=== PATIENT | male | born 1940 | race Caucasian/White ===

== ENCOUNTER 2018-03-10 10:39 | Emergency (ER) | payer OTHER ==
[~2018-03-10] VITALS: Ht 162.6 cm; Wt 64.8 kg
[2018-03-10 10:40] VITALS: BP 184/65
== END 2018-03-10 12:50 | disposition home or self-care (01) ==
LOC: ED 12:46
DX: S82.65XA Nondisplaced fracture of lateral malleolus of left fibula, initial encounter for closed fracture (principal); I25.10 Atherosclerotic heart disease of native coronary artery without angina pectoris; Z88.0 Allergy status to penicillin; W06.XXXA Fall from bed, initial encounter; Y93.89 Activity, other specified; Y92.89 Other specified places as the place of occurrence of the external cause; Y99.8 Other external cause status
CPT/HCPCS: 99284

== ENCOUNTER 2018-10-27 08:54 | Observation (INO) | payer OTHER ==
[~2018-10-27] VITALS: Ht 162.6 cm; Wt 64.1 kg
[2018-10-27 09:50] LABS: BASOPHILS # (AUTO) 0.01 x10^3/uL (0-0.1); BASOPHILS % (AUTO) 0 % (0-1); EOSINOPHILS # (AUTO) 0.04 x10^3/uL (0-0.4); EOSINOPHILS % (AUTO) 1 % (1-7); LYMPHOCYTES # (AUTO) 0.98 x10^3/uL (1-3.4); LYMPHOCYTES % (AUTO) 14 % (22-44); MD NO; MEAN CORPUSCULAR HEMOGLOBIN 33.3 pg (27.5-34.5); MEAN CORPUSCULAR HGB CONC 33.8 g/dL (33.2-36.2); MEAN CORPUSCULAR VOLUME 98.7 fL (81-97); MEAN PLATELET VOLUME 8.5 fL (7.4-10.4); MONOCYTES # (AUTO) 0.47 x10^3/uL (0.2-0.8); MONOCYTES % (AUTO) 7 % (2-9); NEUTROPHILS # (AUTO) 5.76 x10^3/uL (1.8-6.8); NEUTROPHILS % (AUTO) 79 % (42-75); PLATELET COUNT 258 x10^3/uL (130-400); RED BLOOD COUNT 3.42 x10^6/uL (4.38-5.82); RED CELL DISTRIBUTION WIDTH 14.4 % (9.4-14.8)
[2018-10-27] MEDS ORDERED: AMLO10TA6 PO (09:56)
[2018-10-27] MEDS ORDERED: LOVA40TA2 PO (09:57)
[2018-10-27 09:58] LABS: ALBUMIN 3.2 g/dL (3.4-5.0); ANION GAP 10 mmol/L (5-15); CALCIUM 8.5 mg/dL (8.5-10.1); CHLORIDE 113 mmol/L (98-107); CREATININE 3.16 mg/dL (0.7-1.3)
[2018-10-27] MEDS ORDERED: ISOS60TA36 PO (09:59)
[2018-10-27] MEDS ORDERED: METO-95 PO (09:59)
[2018-10-27 10:00] LABS: RAPID INFLUENZA A Negative (Negative); RAPID INFLUENZA B Negative (Negative)
[2018-10-27] MEDS ORDERED: SODIUM CHLORIDE FLUSH 10ML SYR IVF ONE (10:00)
[2018-10-27] MEDS ORDERED: AZITHROMYCIN 500 MG in SODIUM CHLORIDE 0.9% 250 ML IVPB ONE (10:00)
[2018-10-27] MEDS ORDERED: CEFTRIAXONE PMX 1GM/50ML 50 ML IVPB ONE (10:00)
[2018-10-27 10:02] LABS: TROPONIN I 0.109 ng/mL (0.000-0.045)
[2018-10-27] MEDS ORDERED: DOXA1TAB2 PO (10:02)
[2018-10-27] MEDS ORDERED: BENA40TA3 PO (10:02)
[2018-10-27] MEDS ORDERED: ASPI-496 PO (10:02)
[2018-10-27] MEDS ORDERED: METF500T17 PO (10:02)
[2018-10-27] MEDS ORDERED: CEFTRIAXONE PMX 1GM/50ML 50 ML ONE (10:17)
[2018-10-27] MEDS ORDERED: LABETALOL 5MG/ML, 20ML IVPush PRN (13:30)
[2018-10-27] MEDS ORDERED: ONDANSETRON 2MG/ML, 2ML IVPush PRN (13:30)
[2018-10-27] MEDS ORDERED: ONDANSETRON ODT 4 MG PO PRN (13:30)
[2018-10-27] MEDS ORDERED: POLYETHYLENE GLYCOL 17 GM PACKET PO PRN (13:30)
[2018-10-27] MEDS ORDERED: SODIUM CHLORIDE FLUSH 10ML SYR IVF PRN (14:00)
[2018-10-27 14:01] LABS: TROPONIN I 0.103 ng/mL (0.000-0.045)
[2018-10-27 14:03] LABS: FREE T4 (FREE THYROXINE) 1.33 ng/dL (0.76-1.46)
[2018-10-27 14:30] VITALS: BP 187/92
[2018-10-27] MEDS ORDERED: AMLODIPINE 10 MG TAB ONE (14:53)
[2018-10-27] MEDS ORDERED: METOPROLOL TARTRATE 100 MG TABLET ONE (14:54)
[2018-10-27] MEDS: AMLODIPINE 10 MG TAB PO SCH (14:56)
[2018-10-27] MEDS ORDERED: PHARMACY MAY ADJ FOR RENAL FX MC PRN (15:00)
[2018-10-27] MEDS ORDERED: FUROSEMIDE 40 MG/4 ML IV ONE ×2 (15:00)
[2018-10-27] MEDS ORDERED: METOPROLOL SUCCINATE 100 MG TAB.ER.24H ONE (15:01)
[2018-10-27] MEDS: METOPROLOL SUCCINATE 100 MG TAB.ER.24H PO SCH (15:03)
[2018-10-27 16:12] VITALS: BP 186/75
[2018-10-27] MEDS: GUAIFENESIN 200 MG TABLET PO SCH ×2 (16:37→20:41)
[2018-10-27 16:38] VITALS: BP 178/78
[2018-10-27 16:44] LABS: CREATININE,URINE RANDOM 28.1 mg/dL
[2018-10-27] MEDS ORDERED: GLUCAGON 1 MG IM PRN (17:00)
[2018-10-27] MEDS ORDERED: hydrALAzine 20 MG/ML, 1ML IV PRN (17:00)
[2018-10-27] MEDS ORDERED: DEXTROSE 4 GM TAB.CHEW PO PRN (17:00)
[2018-10-27] MEDS ORDERED: DEXTROSE 50%, 50ML SYRINGE IVPush PRN (17:00)
[2018-10-27] MEDS: DOXAZOSIN 1MG TABLET PO SCH (17:05)
[2018-10-27] MEDS: ISOSORBIDE MONONITRATE ER 60 MG TABLET PO SCH (17:05)
[2018-10-27] MEDS: BENAZEPRIL 20 MG TABLET PO SCH (17:05)
[2018-10-27 17:23] LABS: CHOL/HDL RATIO 3.6; LDL/HDL RATIO 2.3 (0.5-3.0)
[2018-10-27 17:36] LABS: HEMOGLOBIN A1C 5.6 % (4.2-6.3)
[2018-10-27] MEDS ORDERED: ALBUTEROL SULFATE 2.5 MG/3 ML NPPB PRN (18:00)
[2018-10-27 18:07] VITALS: BP 159/71
[2018-10-27 19:35] LABS: TROPONIN I 0.083 ng/mL (0.000-0.045)
[2018-10-27] MEDS: HEPARIN 5,000 UNITS/ML, 1ML SQ SCH (19:35)
[2018-10-27] MEDS: DOXYCYCLINE 100MG TABLET PO SCH (20:41)
[2018-10-27] MEDS: LOVASTATIN 40 MG TABLET PO SCH (20:41)
[2018-10-27] MEDS: SODIUM CHLORIDE FLUSH 10ML SYR IVF SCH (20:42)
[2018-10-28 02:11] VITALS: BP 154/69
[2018-10-28 04:59] LABS: BASOPHILS # (AUTO) 0.04 x10^3/uL (0-0.1); BASOPHILS % (AUTO) 1 % (0-1); EOSINOPHILS % (AUTO) 1 % (1-7); LYMPHOCYTES # (AUTO) 1.67 x10^3/uL (1-3.4); LYMPHOCYTES % (AUTO) 23 % (22-44); MD NO; MEAN CORPUSCULAR HEMOGLOBIN 33.5 pg (27.5-34.5); MEAN CORPUSCULAR HGB CONC 33.5 g/dL (33.2-36.2); MEAN CORPUSCULAR VOLUME 99.9 fL (81-97); MEAN PLATELET VOLUME 8.9 fL (7.4-10.4); MONOCYTES # (AUTO) 0.62 x10^3/uL (0.2-0.8); MONOCYTES % (AUTO) 9 % (2-9); NEUTROPHILS # (AUTO) 4.85 x10^3/uL (1.8-6.8); NEUTROPHILS % (AUTO) 67 % (42-75); PLATELET COUNT 241 x10^3/uL (130-400); RED BLOOD COUNT 3.12 x10^6/uL (4.38-5.82); RED CELL DISTRIBUTION WIDTH 14.4 % (9.4-14.8)
[2018-10-28 05:06] LABS: ALANINE AMINOTRANSFERASE 46 U/L (12-78); ALBUMIN 2.7 g/dL (3.4-5.0); ANION GAP 9 mmol/L (5-15); CALCIUM 8.7 mg/dL (8.5-10.1); CHLORIDE 113 mmol/L (98-107); CREATININE 3.22 mg/dL (0.7-1.3)
[2018-10-28 05:17] LABS: ALKALINE PHOSPHATASE 85 U/L (45-117); BILIRUBIN,TOTAL 0.9 mg/dL (0.2-1.0); THYROID STIMULATING HORMONE 0.765 mIU/L (0.358-3.740)
[2018-10-28] MEDS: HEPARIN 5,000 UNITS/ML, 1ML SQ SCH ×3 (05:30→20:23)
[2018-10-28] MEDS: GUAIFENESIN 200 MG TABLET PO SCH ×4 (05:30→20:23)
[2018-10-28 07:55] VITALS: BP 170/72
[2018-10-28] MEDS: SENNA/DOCUSATE TABLET PO SCH (09:00)
[2018-10-28] MEDS ORDERED: METOPROLOL SUCCINATE 100 MG TAB.ER.24H PO SCH (09:00)
[2018-10-28] MEDS: SODIUM CHLORIDE FLUSH 10ML SYR IVF SCH ×2 (09:00→20:23)
[2018-10-28] MEDS ORDERED: AMLODIPINE 10 MG TAB PO SCH (09:00)
[2018-10-28] MEDS: ISOSORBIDE MONONITRATE ER 60 MG TABLET PO SCH (09:10)
[2018-10-28] MEDS: AMLODIPINE 10 MG TAB PO SCH (09:11)
[2018-10-28] MEDS: ASPIRIN 81 MG TABLET CHEW PO SCH (09:11)
[2018-10-28] MEDS: DOXAZOSIN 1MG TABLET PO SCH (09:11)
[2018-10-28] MEDS: DOXYCYCLINE 100MG TABLET PO SCH ×2 (09:11→20:23)
[2018-10-28] MEDS: METOPROLOL SUCCINATE 100 MG TAB.ER.24H PO SCH (09:11)
[2018-10-28] MEDS: BENAZEPRIL 20 MG TABLET PO SCH (09:12)
[2018-10-28] MEDS: CEFTRIAXONE PMX 1GM/50ML 50 ML IV SCH (11:50)
[2018-10-28 12:50] VITALS: BP 159/70
[2018-10-28] MEDS: FUROSEMIDE 20 MG TABLET PO SCH (18:00)
[2018-10-28] MEDS: LOVASTATIN 40 MG TABLET PO SCH (20:23)
[2018-10-28 21:59] VITALS: BP 144/68
[2018-10-29 01:51] VITALS: BP 139/57
[2018-10-29 05:10] LABS: ALBUMIN 2.7 g/dL (3.4-5.0); ANION GAP 9 mmol/L (5-15); CALCIUM 8.2 mg/dL (8.5-10.1); CHLORIDE 109 mmol/L (98-107)
[2018-10-29 05:30] LABS: MEAN CORPUSCULAR HEMOGLOBIN 33.5 pg (27.5-34.5); MEAN CORPUSCULAR HGB CONC 33.4 g/dL (33.2-36.2); MEAN CORPUSCULAR VOLUME 100.2 fL (81-97); MEAN PLATELET VOLUME 9.3 fL (7.4-10.4); PLATELET COUNT 243 x10^3/uL (130-400); RED BLOOD COUNT 3.04 x10^6/uL (4.38-5.82); RED CELL DISTRIBUTION WIDTH 14.2 % (9.4-14.8)
[2018-10-29] MEDS: GUAIFENESIN 200 MG TABLET PO SCH ×4 (05:34→20:43)
[2018-10-29] MEDS: HEPARIN 5,000 UNITS/ML, 1ML SQ SCH ×3 (05:34→20:42)
[2018-10-29 06:25] LABS: BASOPHILS # (AUTO) 0.05 x10^3/uL (0-0.1); BASOPHILS % (AUTO) 1 % (0-1); EOSINOPHILS # (AUTO) 0.34 x10^3/uL (0-0.4); EOSINOPHILS % (AUTO) 5 % (1-7); LYMPHOCYTES # (AUTO) 2.35 x10^3/uL (1-3.4); LYMPHOCYTES % (AUTO) 33 % (22-44); MD SCAN; MONOCYTES # (AUTO) 0.74 x10^3/uL (0.2-0.8); MONOCYTES % (AUTO) 10 % (2-9); NEUTROPHILS # (AUTO) 3.71 x10^3/uL (1.8-6.8); NEUTROPHILS % (AUTO) 52 % (42-75)
[2018-10-29 07:26] VITALS: BP 142/63
[2018-10-29] MEDS: BENAZEPRIL 20 MG TABLET PO SCH (09:00)
[2018-10-29] MEDS: SODIUM CHLORIDE FLUSH 10ML SYR IVF SCH ×2 (09:00→20:44)
[2018-10-29] MEDS: FUROSEMIDE 20 MG TABLET PO SCH ×2 (10:11→17:12)
[2018-10-29] MEDS: SENNA/DOCUSATE TABLET PO SCH (10:11)
[2018-10-29] MEDS: METOPROLOL SUCCINATE 100 MG TAB.ER.24H PO SCH (10:11)
[2018-10-29] MEDS: AMLODIPINE 10 MG TAB PO SCH (10:11)
[2018-10-29] MEDS: ASPIRIN 81 MG TABLET CHEW PO SCH (10:11)
[2018-10-29] MEDS: DOXAZOSIN 1MG TABLET PO SCH (10:12)
[2018-10-29] MEDS: DOXYCYCLINE 100MG TABLET PO SCH ×2 (10:12→20:43)
[2018-10-29] MEDS: ISOSORBIDE MONONITRATE ER 60 MG TABLET PO SCH (10:16)
[2018-10-29] MEDS: CEFTRIAXONE PMX 1GM/50ML 50 ML IV SCH (11:29)
[2018-10-29 14:13] LABS: MICROSCOPIC AUTO
[2018-10-29 14:14] LABS: CULTURE INDICATED? NO
[2018-10-29 14:18] VITALS: BP 138/61
[2018-10-29 14:22] LABS: CREATININE,URINE RANDOM 77.2 mg/dL
[2018-10-29 18:47] VITALS: BP 146/67
[2018-10-29] MEDS: LOVASTATIN 40 MG TABLET PO SCH (20:43)
[2018-10-30 01:27] VITALS: BP 140/60
[2018-10-30] MEDS: HEPARIN 5,000 UNITS/ML, 1ML SQ SCH ×2 (05:51→12:15)
[2018-10-30] MEDS: GUAIFENESIN 200 MG TABLET PO SCH ×2 (05:52→11:03)
[2018-10-30 06:41] VITALS: BP 165/70
[2018-10-30 07:58] LABS: BASOPHILS # (AUTO) 0.04 x10^3/uL (0-0.1); BASOPHILS % (AUTO) 1 % (0-1); EOSINOPHILS # (AUTO) 0.25 x10^3/uL (0-0.4); EOSINOPHILS % (AUTO) 4 % (1-7); LYMPHOCYTES # (AUTO) 2.08 x10^3/uL (1-3.4); LYMPHOCYTES % (AUTO) 30 % (22-44); MD NO; MEAN CORPUSCULAR HGB CONC 33.8 g/dL (33.2-36.2); MEAN CORPUSCULAR VOLUME 97.6 fL (81-97); MEAN PLATELET VOLUME 8.8 fL (7.4-10.4); MONOCYTES # (AUTO) 0.73 x10^3/uL (0.2-0.8); MONOCYTES % (AUTO) 10 % (2-9); NEUTROPHILS # (AUTO) 3.91 x10^3/uL (1.8-6.8); NEUTROPHILS % (AUTO) 56 % (42-75); PLATELET COUNT 255 x10^3/uL (130-400); RED BLOOD COUNT 3.27 x10^6/uL (4.38-5.82); RED CELL DISTRIBUTION WIDTH 14.2 % (9.4-14.8)
[2018-10-30 08:06] LABS: ALBUMIN 2.8 g/dL (3.4-5.0); ANION GAP 11 mmol/L (5-15); CALCIUM 8.2 mg/dL (8.5-10.1); CHLORIDE 107 mmol/L (98-107); CREATININE 3.17 mg/dL (0.7-1.3)
[2018-10-30] MEDS ORDERED: REGADENOSON 0.4 MG/5 ML SYRINGE ONE (08:47)
[2018-10-30] MEDS: SODIUM CHLORIDE FLUSH 10ML SYR IVF SCH (09:00)
[2018-10-30] MEDS: SENNA/DOCUSATE TABLET PO SCH (09:00)
[2018-10-30] MEDS: BENAZEPRIL 20 MG TABLET PO SCH (09:00)
[2018-10-30] MEDS: DOXYCYCLINE 100MG TABLET PO SCH (09:01)
[2018-10-30] MEDS: AMLODIPINE 10 MG TAB PO SCH (09:01)
[2018-10-30] MEDS: METOPROLOL SUCCINATE 100 MG TAB.ER.24H PO SCH (09:01)
[2018-10-30] MEDS: DOXAZOSIN 1MG TABLET PO SCH (09:01)
[2018-10-30] MEDS: FUROSEMIDE 20 MG TABLET PO SCH (09:01)
[2018-10-30] MEDS: ASPIRIN 81 MG TABLET CHEW PO SCH (09:01)
[2018-10-30] MEDS: ISOSORBIDE MONONITRATE ER 60 MG TABLET PO SCH (09:06)
[2018-10-30] MEDS: CEFTRIAXONE PMX 1GM/50ML 50 ML IV SCH (10:48)
[2018-10-30 11:48] VITALS: BP 137/62
[2018-10-30] MEDS ORDERED: ERGOCALCIFEROL 50,000 UNIT CAPSULE PO SCH (12:00)
[2018-10-30] MEDS ORDERED: DOXY100T PO (13:12)
[2018-10-30] MEDS ORDERED: GUAI200T3 PO (13:12)
[2018-10-30] MEDS ORDERED: CEFD300C37 PO (13:12)
[2018-10-30] MEDS ORDERED: FURO20TA3 PO (13:12)
[2018-10-30] MEDS ORDERED: ERGO500017 PO (13:12)
[2018-10-30] MEDS ORDERED: POTA10CA PO (13:14)
[2018-10-30 13:33] VITALS: BP 125/58
== END 2018-10-30 15:10 | disposition home or self-care (01) ==
LOC: ED 11:36 → EDIP 12:48 → INTOOBSV 12:48 → 5SO 14:26
PROVIDERS: ADMIT Hospitalist; ATTEND Hospitalist
DX: R06.09 Other forms of dyspnea (principal); J15.9 Unspecified bacterial pneumonia; R07.9 Chest pain, unspecified; I13.0 Hypertensive heart and chronic kidney disease with heart failure and stage 1 through stage 4 chronic kidney disease, or unspecified chronic kidney disease; I25.10 Atherosclerotic heart disease of native coronary artery without angina pectoris; D64.9 Anemia, unspecified; E11.22 Type 2 diabetes mellitus with diabetic chronic kidney disease; I50.9 Heart failure, unspecified; N18.9 Chronic kidney disease, unspecified; N17.9 Acute kidney failure, unspecified; E44.0 Moderate protein-calorie malnutrition; Z82.49 Family history of ischemic heart disease and other diseases of the circulatory system; Z83.3 Family history of diabetes mellitus; Z87.891 Personal history of nicotine dependence; Z95.1 Presence of aortocoronary bypass graft
CPT/HCPCS: 36415; 70450; 71045; 76770; 78452; 78582; 80048; 80053; 80061; 81001; 82040; 82306; 82436; 82570; 82728; 82962; 83036; 83540; 83550; 83605; 83735; 83970; 84100; 84133; 84145; 84156; 84300; 84439; 84443; 84484; 85025; 85379; 87040; 87070; 87205; 87400; 93005; 93017; 93306; 96365; 96366; 96367; 96372; 96375; 99284; A9502; A9540; A9558; C9898; G0378; J0456; J0696; J1644; J1940; J2785; J7050

== ENCOUNTER 2019-05-05 11:35 | Emergency (ER) | payer MEDICARE, OTHER ==
[~2019-05-05] VITALS: Ht 162.6 cm; Wt 62.7 kg
[~2019-05-05 11:35] MED LIST: AMLO10TA8 PO; ASPI-496 PO; BENA40TA3 PO; CEFD300C37 PO; DOXA1TAB2 PO; DOXY100T PO; ERGO500017 PO; FURO20TA3 PO; GUAI200T3 PO; ISOS60TA36 PO; LOVA40TA2 PO; METF500T17 PO; METO-95 PO; POTA10CA PO
[2019-05-05] MEDS ORDERED: metformin PO (12:11)
[2019-05-05] MEDS ORDERED: SULF-169 PO (12:11)
[2019-05-05] MEDS ORDERED: vitamin b 12 PO (12:11)
[2019-05-05] MEDS ORDERED: AMLODIPINE 5 MG TABLET PO ONE (12:30)
[2019-05-05] MEDS ORDERED: AMLODIPINE 5 MG TABLET ONE (12:33)
[2019-05-05 13:26] VITALS: BP 178/66
== END 2019-05-05 13:28 | disposition home or self-care (01) ==
LOC: ED 13:23
DX: R60.0 Localized edema (principal); I10 Essential (primary) hypertension; Z00.01 Encounter for general adult medical examination with abnormal findings; I25.10 Atherosclerotic heart disease of native coronary artery without angina pectoris
CPT/HCPCS: 99284

== ENCOUNTER 2020-12-22 18:47 | Inpatient (IN) | payer MEDICAID, MEDICARE ==
[~2020-12-22] VITALS: Ht 160 cm; Wt 62.9 kg
[~2020-12-22 18:47] MED LIST changes: +AMLO-211 PO; -AMLO10TA8 PO; +FURO40TA6 PO; -GUAI200T3 PO; +GUAI200T37 PO; +INSU100I11 SQ-INSULIN; +SULF-169 PO; +TAMS-11 PO; +metformin PO; +vitamin b 12 PO
--- NOTE | 2020-12-22 19:09 | NUR ---
TASK RN: CHRISSY HUMPHRIES FROM HOME FOR ALOC. EMS INITIATED BY HOSPICE NURSE WHO REPORTS RAPID DECLINE IN MENTATION AND STRENGTH X 24HRS. ~5 GLF IN THE LAST DAY, LAST 2 HOURS AGO. PT BASELINE AMBULATORY AND INDEPENDENT. WEARS 2L BY NC PER EMS. PER FILM SPLICER WHO CALLED UNIT PT IS A DNR. ON HOSPICE FOR CKD, REFUSING DIALYSIS. UPON ARRIVAL. PT AWAKE, MAINTAINING OWN AIRWAY. LETHARGIC. DISORIENTED. NO OBVIOUS TRAUMA NOTED. PT GROANING, NOT FOLLOWING COMMANDS. MOVING ALL EXTREMITIES. PUPILS PIN POINT AND REACTIVE. BP/SPO2/ECG MONITORING IN PLACE. BRADYCARDIAC NOTED ON MONITOR. EKG COMPLETED UPON ARRIVAL.
--- NOTE | 2020-12-22 20:24 | NUR ---
TP RN: MAEGAN MARINELLI (HOSPITALIST) HAS SEEN PATIENT. PROVIDER TO PUT ORDERS IN.
[2020-12-22] MEDS ORDERED: BISACODYL 5 MG EC TABLET PO PRN (20:30)
[2020-12-22] MEDS ORDERED: ONDANSETRON 2MG/ML, 2ML IVPush PRN (20:30)
[2020-12-22 21:13] VITALS: BP 172/83
[2020-12-22] MEDS: LORazepam 2 MG/ML, 1ML IVPush PRN (22:49)
[2020-12-23] MEDS: LORazepam 2 MG/ML, 1ML IVPush PRN ×7 (00:43→21:46)
[2020-12-23] MEDS: MORPHINE SULFATE 4 MG/ML, 1ML IVPush PRN ×2 (12:07→14:18)
[2020-12-23] MEDS: morphine SULFATE 10 MG/ML, 1ML IVPush PRN (16:29)
[2020-12-24] MEDS: LORazepam 2 MG/ML, 1ML IVPush PRN ×4 (00:34→23:29)
[2020-12-24] MEDS: morphine SULFATE 10 MG/ML, 1ML IVPush PRN ×5 (00:43→23:06)
[2020-12-24] MEDS: ATROPINE OPHTH SOLN 1%, 5ML PO PRN ×6 (08:40→23:17)
[2020-12-24] MEDS ORDERED: SCOPOLAMINE PATCH, 1.5MG PATCH.TD72 TD SCH (18:00)
== END 2020-12-25 01:14 | disposition expired | DRG 70 ==
LOC: ED 20:39 → EDIP 20:47 → 3N 20:55 → 4NW 12-23 10:23
PROVIDERS: ADMIT Family Medicine; ATTEND Hospitalist
DX: G93.41 Metabolic encephalopathy (principal); N18.6 End stage renal disease; I13.2 Hypertensive heart and chronic kidney disease with heart failure and with stage 5 chronic kidney disease, or end stage renal disease; Z51.5 Encounter for palliative care; Z66 Do not resuscitate; R26.2 Difficulty in walking, not elsewhere classified; E11.22 Type 2 diabetes mellitus with diabetic chronic kidney disease; I25.10 Atherosclerotic heart disease of native coronary artery without angina pectoris; I50.9 Heart failure, unspecified; I44.1 Atrioventricular block, second degree; I35.1 Nonrheumatic aortic (valve) insufficiency; R00.1 Bradycardia, unspecified; Z60.2 Problems related to living alone; D53.9 Nutritional anemia, unspecified; Z88.0 Allergy status to penicillin; Z88.8 Allergy status to other drugs, medicaments and biological substances; Z95.1 Presence of aortocoronary bypass graft; Z87.891 Personal history of nicotine dependence; Z95.5 Presence of coronary angioplasty implant and graft; Z79.899 Other long term (current) drug therapy
CPT/HCPCS: 93005; 99285; G0378; J2060; J2270